=== PATIENT | male | born 1945 | race Caucasian/White ===

== ENCOUNTER 2019-06-02 18:32 | Emergency (ER) | payer MEDICARE, BC ==
[2019-06-02] MEDS ORDERED: HYDROcodone/APAP 5-325MG 1 EACH TAB PO STA (19:16)
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
--- NOTE | 2019-06-02 20:05 | XR ---
EXAMINATION TYPE: XR forearm RT DATE OF EXAM: 06/02/2019 COMPARISON: NONE HISTORY: Forearm pain TECHNIQUE: 2 views FINDINGS: There is no sign of fracture nor dislocation. Joint spaces are normal. IMPRESSION: Negative right forearm exam.
--- NOTE | 2019-06-02 20:06 | XR ---
EXAMINATION TYPE: XR hand complete RT DATE OF EXAM: 06/02/2019 COMPARISON: NONE HISTORY: Pain TECHNIQUE: 3 views FINDINGS: Metacarpals are intact. I see no fracture nor dislocation. There are no erosions. Exam is l imited slightly by flexion positioning. IMPRESSION: Negative right hand exam.
[2019-06-02] MEDS ORDERED: ORPHENADRINE 30 MG/ML 2 ML VIAL IM STA (20:26)
[2019-06-02] MEDS ORDERED: KETOROLAC 60 MG/2 ML VIAL IM STA (20:26)
--- NOTE | 2019-06-02 20:29 | US ---
EXAMINATION TYPE: US venous doppler duplex UE RT DATE OF EXAM: 06/02/2019 COMPARISON: NONE CLINICAL HISTORY: Pain. Pain in right wrist, no kno0wn injury, no h/o dvt, no swelling SIDE PERFORMED: Right Right Arm: Appears negative for DVT IMPRESSION: No evidence of deep venous thrombosis in the right arm.
[2019-06-02] MEDS ORDERED: methylPREDNISolone SOD SUCCI 125 MG/2 ML VIAL IM ONE (20:50)
[2019-06-02] MEDS ORDERED: MORPHINE SULFATE 4 MG/ML SYRINGE IM STA (20:50)
[2019-06-02 21:40] VITALS: BP 146/80; PULSE 56; RESP 18; TEMP 98.5
== END 2019-06-02 21:40 | disposition home or self-care (01) ==
LOC: EC 18:32
DX: G56.01 Carpal tunnel syndrome, right upper limb (principal); K21.9 Gastro-esophageal reflux disease without esophagitis; E78.5 Hyperlipidemia, unspecified; F41.9 Anxiety disorder, unspecified; F32.9 Major depressive disorder, single episode, unspecified; Z87.39 Personal history of other diseases of the musculoskeletal system and connective tissue; Z85.828 Personal history of other malignant neoplasm of skin; Z79.51 Long term (current) use of inhaled steroids; Z79.899 Other long term (current) drug therapy; Z91.048 Other nonmedicinal substance allergy status; Z88.5 Allergy status to narcotic agent
CPT/HCPCS: 93005; 73090; 73130; 93971; 99284; 29125; 96372 ×4; J2270; J2360; J2930; J1885

== ENCOUNTER → 2021-02-17 | Outpatient (CLI) | payer MEDICARE, BC ==
[2021-02-17 08:51] VITALS: BP 123/87; PULSE 62; RESP 18; TEMP 97.6
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
== END ==
LOC: PNWHC3 08:29
PROVIDERS: ATTEND Hospitalist
DX: M47.812 Spondylosis without myelopathy or radiculopathy, cervical region (principal); M50.30 Other cervical disc degeneration, unspecified cervical region; K21.9 Gastro-esophageal reflux disease without esophagitis; E78.5 Hyperlipidemia, unspecified; M19.90 Unspecified osteoarthritis, unspecified site; F41.9 Anxiety disorder, unspecified; F32.9 Major depressive disorder, single episode, unspecified
CPT/HCPCS: 99211

== ENCOUNTER 2021-05-02 11:38 | Day surgery (SDC) | payer MEDICARE ==
[2021-05-01 11:25] VITALS: BMI 25.8
[2021-05-02] MEDS ORDERED: LACTATED RINGERS 1,000 ML IV ONE (12:02)
[2021-05-02] MEDS ORDERED: LIDOCAINE 1% (10MG/ML) FOR IV START INTRADERMA ONE (12:02)
[2021-05-02 12:08] VITALS: TEMP 97.4
[2021-05-02] MEDS ORDERED: ROPIVACAINE 5MG/ML 20ML VIAL ONE (12:17)
[2021-05-02] MEDS ORDERED: LIDOCAINE 1% INJ 10MG/ML (20 ML MDV) ONE (12:17)
[2021-05-02] MEDS ORDERED: MIDAZOLAM 2 MG/2 ML VIAL ONE (12:17)
[2021-05-02] MEDS ORDERED: fentaNYL (PF) 50 MCG/ML 2 ML AMP ONE (12:17)
--- NOTE | 2021-05-02 12:55 | P.PCN ---
Description of Procedure: PREOPERATIVE DIAGNOSIS: Cervicalgia POSTOPERATIVE DIAGNOSIS: Same Surgeon: Morales Lee M.D. PROCEDURE PERFORMED: Cervical Medial Branch Radiofrequency Ablation, at the following levels: C3-4 C4-5 C5-6 right side ANESTHESIA: Lidocaine 1% 5 mL, Monitored anesthesia care with anesthesia team ESTIMATED BLOOD LOSS: Minimal Fluoroscopy was used for the procedure and images were saved in the radiology portion of the chart. PROCEDURE INDICATION: The patient with neck pain secondary to cervical facet arthropathy who had more than 50% relief of pain with previous diagnostic lumbar medial branch block X2. PROCEDURE DESCRIPTION / TECHNIQUE: The patient was seen and identified in the preoperative area. Risks, benefits, complications, including but not limited to risk of infection ,bleeding , allergic reactions to the medications and incomplete pain relief , and alternatives were discussed with the patient, the patient agreed to proceed with the procedure and signed the consent. IV was started. The operative site was marked. Patient was taken to the OR and time out was completed. The patient was placed in the prone position on the procedure table. The lumbar area was prepped and draped in the usual sterile fashion. . Vital signs were closely monitored during the procedure .IV sedation was used during the procedure to decrease patients anxiety. An AP fluoroscopic staff veterinarian film was taken to identify the dens, the C3 C4 C5 C6 vertebral bodies, and the waists of the articular pillars at the aforementioned levels. A pillar (caudal tilt) view was utilized to highlight the waists of the articular pillars at these levels. The skin was prepped with chlorhexidine and draped in the usual sterile fashion. The skin and subcutaneous tissue overlying the above levels were anesthetized using a 25-gauge 1-1/2-inch needle with 1% preservative free lidocaine for a total volume of 1 ml per level. An 20-gauge and 100 mm SMK needle with a 10 mm active tip was advanced, coaxially, in the pillar view until the needle tip was noted to slide into the groove of the articular pillar. A true lateral view was obtained and the needle tips were advanced to cover to the lateral aspect of the articular pillar at right/right C3 C4 C5 C6, for corresponding medial branch ablation. The needles were advanced until bony contact was felt and the tip of the SMK needle was confirmed to be in the groove of the waist of the articular pillars at the aforementioned levels. The needle positions were confirmed with AP and lateral fluoroscopic views. Motor stimulation was then performed at 2 Hz and up to 2V with only paraspinal muscle contraction noted at each level and no upper extremity stimulation. At this point, after negative aspiration, Bupivacaine 0.5% x 0.5 mL was injected at each level prior to radiofrequency ablation. Lesioning was then carried out at 85 degrees Celsius times 90 seconds. Following lesioning the needles were removed. COMPLICATIONS: No acute complications. DISPOSITION / PLANS: The patient was placed in a supine position and transferred to the recovery area in a stable condition for observation and was discharged from the recovery room after meeting discharge criteria. Home discharge instructions given to the patient by the staff. The patient will follow up in clinic in 4 weeks.
[2021-05-02] MEDS ORDERED: IV FLUID CONTINUATION 1,000 ML IV ONE (13:01)
[2021-05-02 13:17] VITALS: BP 133/66; PULSE 57; RESP 16
--- NOTE | 2021-05-02 13:23 | FL ---
EXAMINATION TYPE: FL guided pain mgmt statistic DATE OF EXAM: 05/02/2021 CLINICAL HISTORY: Neck pain. TECHNIQUE: Fluoroscopy. COMPARISON: None. FINDINGS: Fluoroscopic guidance was provided during pain relief procedure performed by Dr. Lee . A total of 39 seconds of fluoroscopic time was utilized during the procedure and two spot images are acquired. Images acquired shows needle localization at multiple levels off the midline in the cervi ingrid spine. IMPRESSION: As Above.
[2021-05-02] MEDS ORDERED: ONDANSETRON 4 MG/2 ML VIAL ONE (13:24)
[2021-05-02] MEDS ORDERED: ONDANSETRON 4 MG/2 ML VIAL IVP ONE (13:26)
== END 2021-05-02 13:54 | disposition home or self-care (01) ==
LOC: ORPAIN 11:38
PROVIDERS: ATTEND Anesthesiology
DX: M54.2 Cervicalgia (principal); Z88.5 Allergy status to narcotic agent; E78.5 Hyperlipidemia, unspecified; J45.909 Unspecified asthma, uncomplicated; K21.9 Gastro-esophageal reflux disease without esophagitis; Z79.891 Long term (current) use of opiate analgesic; Z79.899 Other long term (current) drug therapy
CPT/HCPCS: 64633; 64634 ×2; J2250; J2405; J2001; J3010; J2795

== ENCOUNTER → 2021-05-28 | Outpatient (CLI) | payer MEDICARE ==
[2021-05-28 11:12] VITALS: BP 133/76; PULSE 54; RESP 18; TEMP 98
--- NOTE | 2021-05-28 11:19 | P.PAINPG ---
Subjective Progress Note Date: 05/28/21 Arpit is a very pleasant 75-year-old gentleman who presents today as a Follow- up. To recap [facility] where he was seeing Dr. Elizalde and was getting cervical radiofrequency ablations. Was getting 70 to 80% relief for more than 12 months. We recently repeated right C3-C4 C4-C5 and C5-C6 radiofrequency ablation. he notes that he has significant relief from recent ablation procedure, nearly 90%. Overall most of his frustration stems from the fact that he was unable to get both sides done at the same time and the fact that he is seeing multiple physicians in our clinic. I did explain to him the concept that insurance does not allow us to do 3 levels bilaterally and that we do have several providers at our clinic. Patient understands but would prefer to see the same position over and over so his primary care doctor did refer him to a neurosurgeon who also has an affiliation with the pain clinic. He would like to pursue treatment there and he'll give us a call if they are not helpful to him and we can repeat the RFA at C3-C4 C4-C5 and C5-C6 on the left side. MRIs done at [facility] and are detailed in the orthopedic associated notes detail significant facet joint arthropathy bilaterally in the cervical spine from C3 to C7. There is significant degenerative disc disease with scattered neural foraminal stenosis. There is also mention of a possible arachnoid cyst near the vermis of the cerebellum. Review of Systems: Denies any New chest pain, short of breath, Nausea/vomitting, abdominal pain, bowel or bladder incontinence, or any overt new neurologic symptoms in his upper or lower extremities. Physical Exam Vitals: General: Awake and alert oriented 3 no distress Respiratory exam: No audible wheezing no accessory muscle usage Cardiovascular exam: regular rate, palpable bilateral pulses, no lower extremity edema Abdominal exam: No distention nontender to palpation Cervical spine: Normal alignment, limited range of motion in flexion and extension. There is limited left and right lateral sidebending. Upper extremity strength is normal. Del Valle's is negative. Metallographic Technician strength is normal. Lumbar spine: Slight loss of lordosis, there is atrophy of paraspinal and gluteal muscles. Nontender palpation. Lower extremity strength is normal bilaterally Neuro exam: Normal sensation in bilateral upper extremities, deep tendon reflexes are 1+ bilateral upper extremities. Normal sensation in bilateral lower extremities. Deep tendon reflexes are 2+ in lower extremities Psych exam: Cooperative, appropriate mood Assessment and Plan Assessment: #1 cervical spondylosis without myelopathy #2 cervical degenerative disc disease Plan: - he will call as needed to schedule L C3-4 C4-5 C5-6 RFA I have spent 23 minutes on patient care today. The time was used to review the medical records including relevant urine studies and Prescription history (MAPs), review of the available imaging, evaluation and examination of the patient, coordination of care with the medical staff and if applicable referring physicians, as well as creation of the medical record. PQRS Measure Charge Sheet PQRS Narrative: Smoking Status Never smoker Blood Pressure 123/87 Pain Intensity [Neck] 6 Scale Used Numeric (1 - 10) Hx Alcohol Use (MH) Yes Objective - Vital Signs Vital signs: Intake & Output 05/26/21 05/27/21 05/27/21 18:59 06:59 18:59 Weight 73.936 kg PQRS Measure Charge Sheet PQRS Narrative: Smoking Status Never smoker Pain Intensity [Left Neck] 6 Scale Used Numeric (1 - 10) Hx Alcohol Use (MH) Yes Home Medications: Ambulatory Orders Ezetimibe [Zetia] 10 mg PO HS 09/11/15 Propranolol HCl [Inderal LA] 80 mg PO Q48H 09/11/15 SUMAtriptan SUCCINATE [Imitrex] 100 mg PO DAILY PRN 09/11/15 buPROPion XL [Wellbutrin XL] 150 mg PO HS 09/11/15 buPROPion XL [Wellbutrin XL] 300 mg PO QAM 09/11/15 clonazePAM [KlonoPIN] 0.25 mg PO BID 09/11/15 Albuterol Inhaler (Mhu) [Ventolin Hfa Inhaler (Mhu)] 1 - 2 puff INHALATION Q6HR PRN 08/17/17 Omeprazole [PriLOSEC] 40 mg PO BID 08/17/17 HYDROcodone/APAP 5-325MG [[place] 5-325] 1 tab PO Q6HR PRN 3 Days #12 tab 06/02/19 Lidocaine 5% Patch [Lidoderm] 1 patch TOPICAL DAILY PRN 02/14/21 Multivit-Min36/Iron/Folic Acid [Geritol Complete Tablet] 1 each PO DAILY 02/14/21 lamoTRIgine [LaMICtal] 25 mg PO DAILY 03/13/21 Controlled Substance Measures - Controlled Substance Measures Is patient prescribed a controlled substance at discharge?: No
== END ==
LOC: PNWHC3 10:51
PROVIDERS: ATTEND Anesthesiology
DX: M47.812 Spondylosis without myelopathy or radiculopathy, cervical region (principal); M50.30 Other cervical disc degeneration, unspecified cervical region; Z88.5 Allergy status to narcotic agent; Z91.048 Other nonmedicinal substance allergy status; Z91.09 Other allergy status, other than to drugs and biological substances
CPT/HCPCS: 99211

== ENCOUNTER 2021-07-18 07:02 | Day surgery (SDC) | payer MEDICARE ==
[2021-07-16 15:32] VITALS: BMI 25.8
[~2021-07-18 07:02] MED LIST: LACTATED RINGERS 1,000 ML IV SCH
[2021-07-18 07:19] VITALS: TEMP 96.8
[2021-07-18] MEDS ORDERED: methylPREDNISolone ACETATE 40 MG/ML 1 ML VIAL ONE (07:37)
[2021-07-18] MEDS ORDERED: ROPIVACAINE 5MG/ML 20ML VIAL ONE (07:37)
[2021-07-18] MEDS ORDERED: fentaNYL (PF) 50 MCG/ML 2 ML AMP ONE (07:37)
[2021-07-18] MEDS ORDERED: MIDAZOLAM 2 MG/2 ML VIAL ONE (07:37)
--- NOTE | 2021-07-18 08:03 | P.PCN ---
Date of Procedure: 07/18/21 Procedure(s) Performed: PREOPERATIVE DIAGNOSIS: Cervical spondylosis with Facet Arthropathy without myelopathy. POSTOPERATIVE DIAGNOSIS: Cervical spondylosis with Facet Arthropathy without myelopathy. PROCEDURES: Radiofrequency thermocoagulation Left C3, C4, C5, medial branch with Fluroscopy Guidence(fluoroscopy was available in etiology department ) (to denervate the facet joint at Left C3- 4 , C4- 5 ) ANESTHESIA: monitered anesthesia care,as per anesthesia Department. EBL: Minimal PROCEDURE INDICATION: The patient with neck pain secondary to cervical arthropathy who had more than 50% relief of her pain with previous diagnostic cervical medial branch block. PROCEDURE DESCRIPTION / TECHNIQUE: The patient was seen and identified in the preoperative area. Risks, benefits, complications, and alternatives were discussed with the patient, the patient agreed to proceed with the procedure and signed the consent. IV was started. Vital signs remained stable throughout the procedure. Patient was taken to the OR and time out was completed. The patient was placed in the prone position on the procedure table. A pillow was placed under the patients chest to increase the cervical interlaminar space. The cervical area was prepped and draped in the usual sterile fashion. Critical pause was taken. Vital signs were closely monitored during the procedure. Conscious sedation was used during the procedure to decrease patients anxiety. Using cross-table lateral fluoroscopy, the centroid of the trapezoid of Left C3, C4, C5, were identified, marked, and localized with 1% lidocaine. Subsequently, a 20 -xe radiofrequency cannula with a 10-mm active tip was advanced guided by fluoroscopy to the centroid of the trapezoid of Left C3, C4, C5, . Needle tip position was confirmed at the centroid of the trapezoids of Left C3, C4, C5 with anteroposterior fluoroscopy. Each site then underwent sensory testing at 50 Hz and 0 to 1 volt and motor testing at 2 Hz and 0 to 3 volt with local stimulation, but no radicular symptoms down the arm. Thereafter each sites underwent radiofrequency thermocoagulation at 80 degrees celsius for 90 seconds after injecting 0.5 ml of PF Ropivacaine 0.5 %. After thermocoagulation, 1 ml of the block solution containing Depo-Medrol 40 mg and 3 mL of preservative-free normal saline was injected at the Left C3, C4, C5, levels after negative aspiration of CSF and blood and with no paresthesias. Cannulas were retracted while injecting lidocaine 1% until the needle is out. Skin was cleansed and bandages were applied. COMPLICATIONS: No acute complications. DISPOSITION / PLANS: The patient was placed in a supine position and transferred to the recovery area in a stable condition for observation and was discharged from the recovery room after meeting discharge criteria. Home discharge instructions given to the patient by the staff. The patient was reexamined prior to discharge. The patient will schedule a follow up in the clinic in 2-4 weeks.
[2021-07-18] MEDS ORDERED: IV FLUID CONTINUATION 1,000 ML IV ONE (08:07)
[2021-07-18 08:16] VITALS: RESP 16
[2021-07-18 08:25] VITALS: BP 128/89; PULSE 50
--- NOTE | 2021-07-18 08:31 | FL ---
Fluoroscopy History: Cerv Rad Freq 7sec fluoro time+
== END 2021-07-18 08:40 | disposition home or self-care (01) ==
LOC: ORPAIN 07:02
PROVIDERS: ATTEND Specialist
DX: M47.812 Spondylosis without myelopathy or radiculopathy, cervical region (principal); G43.909 Migraine, unspecified, not intractable, without status migrainosus; Z79.891 Long term (current) use of opiate analgesic; Z79.899 Other long term (current) drug therapy; Z88.5 Allergy status to narcotic agent; Z91.09 Other allergy status, other than to drugs and biological substances
CPT/HCPCS: 64633; 64634; J2250; J1030; J3010; J2795

== ENCOUNTER → 2021-08-11 | Outpatient (CLI) | payer MEDICARE ==
[2021-08-11 10:20] VITALS: BP 134/83; PULSE 80; RESP 18
--- NOTE | 2021-08-11 10:34 | P.PN ---
Subjective Progress Note Date: 08/11/21 This is a follow-up visit for this 76 years old male with a chronic history of severe neck pain,he is diagnosed with cervical spondylosis with cervical facet arthropathy, recently we have done RFA of the medial branch cervical area, she reported that his pain improved significantly, his activity of daily livings improved significantly after the RFA, he denies any motor or sensory deficit Objective - Vital Signs Vital signs: Vital Signs Temp Pulse 80 08/11/21 10:08 Resp 18 08/11/21 10:08 BP 134/83 08/11/21 10:08 Pulse Ox 95 08/11/21 10:08 - Exam Physical Examinations : -Constitutiona : Cooperative , not in acute distress . -HEENT : nech : supple , no Lymphadenopathy , normal thyroid size . : eyes : no ptosis , no icterus, no photophobia . - neurologic : Cranial nerve II to XII intact , no focal neurological deffecit . -psychatric : alert , oriented X 3 , appropriate affect , intact judgment and insight . -Lymphatic : no Lymphadenopathy . - musculoskeltal : normal Motor strength in the upper extremity Lumber spine moter stegnth lower extremities ,thigh and legs 5/5 Right side , 5/5 Left side Assessment and Plan Plan: Assessment and plan=1-cervical spondylosis with cervical facet arthropathy Pain improved significantly after RFA of the medial branch cervical area patient will follow up when necessary Time with Patient: Less than 30
== END ==
LOC: PNWHC3 09:39
PROVIDERS: ATTEND Specialist
DX: M47.812 Spondylosis without myelopathy or radiculopathy, cervical region (principal); Z98.890 Other specified postprocedural states; Z91.048 Other nonmedicinal substance allergy status; Z88.5 Allergy status to narcotic agent; Z91.09 Other allergy status, other than to drugs and biological substances
CPT/HCPCS: 99211

== ENCOUNTER → 2022-01-08 | Outpatient (CLI) | payer MEDICARE ==
--- NOTE | 2022-01-08 09:08 | P.PN ---
Subjective Progress Note Date: 01/08/22 Principal diagnosis: A 76 yr old male with a history of severe and chronic neck pain secondary to cervical degenerative disc diseases and spondylosis with facet arthropathy presents today for evaluation. Patient states his neck pain has been on and off for the last 20 years and is currently 7 out of 10 in intensity, achy, sharp and pretty constant over the last 2 weeks. Pain escalates as high as 10 out of 10 in intensity with lifting, carrying and pulling with the upper extremities. Pain is alleviated with medications, lidocaine patches, injections, ice, heat, physical therapy in , chiropractic treatments which were discontinued by his physician, home exercise regimen daily, massage while at physical therapy, use of a recliner and rest. Interventional pain procedures completed include Stephanie, Morgan RFA C3-C4, C4-C5, C5- C6. Patient is currently on Hailey, Tylenol arthritis. Patient denies any side effects of the medication(s), denies excessive drowsiness or sleepiness, denies suicidal ideation and reports that the current pain medication is helping to control the pain and improve activities of daily living. Patient denies any motor or sensory deficits. Patient denies any fever or night sweats, denies any change in the bowel movements or urination. Physical Examination: -Constitutional: Cooperative. Not in acute distress . -HEENT: Neck is supple. No lymphadenopathy. No thyromegaly. Normal thyroid size. Eyes: No ptosis , no icterus, no photophobia. ENT: No auditory deficits. Normal oropharynx. No Thrush. - Respiratory: Chest clear to auscultations bilaterally. No wheezing. No rhonchi. - Cardiovascular: Regular rate and rhythm. S1 / S2 , no S3 , no S4. - Gastrointestinal: Abdomen soft no tenderness. Bowel sounds positive in all four quadrants. No organomegaly. - Genitourinary: Deferred. - Neurologic: Cranial nerve II to XII intact. No focal neurological deficits. - Psychatric: Alert & oriented x 3. Matching mood & appropriate affect. Judgment and insight intact. - Lymphatic: No Lymphadenopathy. - Musculoskeletal: Cervical spine: Muscle bulk/ tone/ strength in the bilateral upper extremities normal. Vertebral body tenderness over C4, C5, C6 Spurling test positive Distraction test positive Facet loading test cervical area positive. Lumbar spine: Motor bulk/ tone/ strength lower extremities , thigh and legs : 5/5 Deep tendon reflexes : Normal Knee Jerk. Normal Ankle Jerk . Vertebral body tenderness to palpation over Lumbar Facet Loading Test positive Straight Leg Raise: positive at 30 degrees right side/ left side Gaenslen's Test positive Sacral spine : Severe tenderness over the Sacroiliac joint: right side / left side Range of motion: Flexion of the lumbar spine <60 degrees Range of motion: Extension of the lumbar spine <20 degrees Gaenslen's Test positive Jossy test: positive right side / left side Assessment and plan: Chronic neck pain secondary to cervical degenerative disc disease , spondylosis with facet arthropathy without myelopathy Recommendation of ALEXI C4-C5. May need a series of injections, up to 3 with a six-month period, to obtain optimal pain relief. Risks, benefits of procedure discussed patient verbalized understanding. Denies anticoagulants use. Denies medical history diabetes mellitus. All patient questions answered MAPS reviewed and it was appropriate. I have spent 31 minutes on patient care today. Dr Angela was available by phone for the evaluation of this patient. The time was used to review the medical records including relevant urine studies and Prescription history (MAPs), review of the available imaging, evaluation and examination of the patient, coordination of care with the medical staff and if applicable referring physicians, as well as creation of the medical record PQRS Measure Charge Sheet PQRS Narrative: Smoking Status Never smoker Hx Alcohol Use (MH) Yes Home Medications: Ambulatory Orders Ezetimibe [Zetia] 10 mg PO HS 09/11/15 Propranolol HCl [Inderal LA] 80 mg PO Q48H 09/11/15 SUMAtriptan SUCCINATE [Imitrex] 100 mg PO DAILY PRN 09/11/15 buPROPion XL [Wellbutrin XL] 150 mg PO HS 09/11/15 buPROPion XL [Wellbutrin XL] 300 mg PO QAM 09/11/15 clonazePAM [KlonoPIN] 0.25 mg PO BID 09/11/15 Albuterol Inhaler (Mhu) [Ventolin Hfa Inhaler (Mhu)] 1 - 2 puff INHALATION Q6HR PRN 08/17/17 Omeprazole [PriLOSEC] 40 mg PO BID 08/17/17 HYDROcodone/APAP 5-325MG [[place] 5-325] 1 tab PO Q6HR PRN 3 Days #12 tab 06/02/19 Lidocaine 5% Patch [Lidoderm] 1 patch TOPICAL DAILY PRN 02/14/21 Multivit-Min36/Iron/Folic Acid [Geritol Complete Tablet] 1 each PO DAILY 02/14/21 lamoTRIgine [LaMICtal] 50 mg PO DAILY 03/13/21
[2022-01-08 10:13] VITALS: BP 121/81; PULSE 60; RESP 18; TEMP 98.2
== END ==
LOC: PNWHC3 07:52
PROVIDERS: ATTEND Specialist
DX: G89.29 Other chronic pain (principal); M50.30 Other cervical disc degeneration, unspecified cervical region; M47.812 Spondylosis without myelopathy or radiculopathy, cervical region; Z88.5 Allergy status to narcotic agent; Z91.048 Other nonmedicinal substance allergy status; Z91.09 Other allergy status, other than to drugs and biological substances
CPT/HCPCS: 99211

== ENCOUNTER → 2022-03-16 | Outpatient (CLI) | payer MEDICARE ==
[2022-03-16 11:16] VITALS: BP 116/76; PULSE 58; RESP 16
--- NOTE | 2022-03-16 11:21 | P.PN ---
Subjective Progress Note Date: 03/16/22 This is a 76-year-old gentleman with history of chronic neck pain with radi ation to the left shoulder. His pain is mostly on the left side of her worse neck and starts from the suboccipital area down to the left shoulder. The patient had cervical medial branch RFA about 8 months ago which gave him significant pain relief. Recently he has cervical epidural steroid injection and trigger point injection which did not give him as good results as of the ablation. Patient denies new-onset weakness, bowel/bladder incontinence, or any other signs or symptoms of cauda equina syndrome. There are no signs of acute intoxication, and no indications of medication diversion or overuse. In addition to above, 13-point review of systems is also negative for chest pain, shortness of breath, changes in vision, changes in hearing, new onset weakness, abdominal pain, diarrhea, extreme fatigue, malaise, fever, skin changes, homicidal or suicidal ideation, or bowel or bladder incontinence. Vital Signs: Reviewed in EMR Gen: AAOx3, NAD HEENT: PERRLA,hearing grossly normal Pulm: resp unlabored Neck: supple, trachea midline Neuro exam of the lower extremities: Straight leg raising test: Erasmo's test: Range of motion of the lumbar spine: Facet loading test: Tenderness in the paravertebral musculature: Neuro: CN II-XII grossly intact, Imaging: Reviewed in EMR/chart Assessment: Cervical spondylosis without myelopathy Myofascial pain Plan: 1. Explanation: When patients on opioids, opioid and psychological risk scores were reviewed. Diagnoses, prognoses, and multiple treatment options including but not limited to physical therapy, interventional therapies, adjuvant medical therapies, narcotic medication therapies, and surgery were discussed with the patient and all questions were answered to the patient's satisfaction. 2. Opioid agreement:When patients are prescribed opoids through our clinic, opioid agreement is signed with the patient and the patient is warned not to use opioids while driving or before driving and not to combine opioids with benzodiazepines or alcohol. 3. Counseling: When patient is smoking or obese, the patient was counseled extensively on SMOKING CESSATION, BODY MASS INDEX, EXERCISE. Specifically, the patient was instructed regarding the importance of smoking cessation, obesity, and exercise in the context of both chronic pain and overall health. 4. Procedures: The patient had very good results from the cervical medial branch RFA 8 months ago and going to schedule him for another cervical medial branch RFA for levels C4-5, and C5 6 also for trigger point injection in the left trapezius muscle and left cervical paravertebral musculature 5. Consultations: None 6. Investigations: None 7. Medications: None prescribed today 8. Disposition: Proceed with the above-mentioned procedure as soon as possible 9. Maps were reviewed and were appropriate. Objective - Vital Signs Vital signs: Vital Signs Temp Pulse 58 L 03/16/22 10:47 Resp 16 03/16/22 10:47 BP 116/76 03/16/22 10:47 Pulse Ox 96 03/16/22 10:47 FiO2
== END ==
LOC: PNWHC3 10:40
PROVIDERS: ATTEND Anesthesiology
DX: M47.812 Spondylosis without myelopathy or radiculopathy, cervical region (principal); M79.18 Myalgia, other site; Z88.5 Allergy status to narcotic agent; Z91.048 Other nonmedicinal substance allergy status; Z91.09 Other allergy status, other than to drugs and biological substances
CPT/HCPCS: 99211

== ENCOUNTER 2022-04-03 06:20 | Day surgery (SDC) | payer MEDICARE ==
[2022-04-03 06:34] VITALS: TEMP 97.2
[2022-04-03] MEDS ORDERED: LACTATED RINGERS 1,000 ML IV ONE (06:45)
[2022-04-03] MEDS ORDERED: fentaNYL (PF) 50 MCG/ML 2 ML AMP ONE (07:00)
[2022-04-03] MEDS ORDERED: ROPIVACAINE 5MG/ML 20ML VIAL ONE (07:00)
[2022-04-03] MEDS ORDERED: methylPREDNISolone ACETATE 40 MG/ML 1 ML VIAL ONE (07:00)
[2022-04-03] MEDS ORDERED: MIDAZOLAM 2 MG/2 ML VIAL ONE (07:00)
--- NOTE | 2022-04-03 07:32 | P.PCN ---
Date of Procedure: 04/03/22 Procedure(s) Performed: PREOPERATIVE DIAGNOSIS: Cervical spondylosis with Facet Arthropathy without myelopathy. POSTOPERATIVE DIAGNOSIS: Cervical spondylosis with Facet Arthropathy without myelopathy. PROCEDURES: Radiofrequency thermocoagulation Left C4, C5, C6 medial branch with Fluroscopy [place](fluoroscopy was available in etiology department ) (to denervate the facet joint at Left C4- 5, C5-6 ) ANESTHESIA: monitered anesthesia care,as per anesthesia Department. EBL: Minimal PROCEDURE INDICATION: The patient with neck pain secondary to cervical arthropathy who had more than 50% relief of her pain with previous diagnostic cervical medial branch block. PROCEDURE DESCRIPTION / TECHNIQUE: The patient was seen and identified in the preoperative area. Risks, benefits, complications, and alternatives were discussed with the patient, the patient agreed to proceed with the procedure and signed the consent. IV was started. Vital signs remained stable throughout the procedure. Patient was taken to the OR and time out was completed. The patient was placed in the lateral position on the procedure table ( left side up ). The cervical area was prepped and draped in the usual sterile fashion. Critical pause was taken. Vital signs were closely monitored during the procedure. Conscious sedation was used during the procedure to decrease patients anxiety. Using cross-table lateral fluoroscopy, the centroid of the trapezoid of Left C4, C5, C6 were identified, marked, and localized with 1% lidocaine. Subsequently, a 20 ssovj278-on radiofrequency cannula with a 10-mm active tip was advanced guided by fluoroscopy to the centroid of the trapezoid of Left C4, C5, C6 . Needle tip position was confirmed at the centroid of the trapezoids of Left C4, C5, C6 with anteroposterior fluoroscopy. Each site then underwent sensory testing at 50 Hz and 0 to 1 volt and motor testing at 2 Hz and 0 to 3 volt with local stimulation, but no radicular symptoms down the arm. Thereafter each sites underwent radiofrequency thermocoagulation at 80 degrees celsius for 90 seconds after injecting 0.5 ml of PF Ropivacaine 0.5 %. After thermocoagulation, 1 ml of the block solution containing Depo-Medrol 40 mg and 3 mL of preservative-free normal saline was injected at the Left C4, C5, C6 levels after negative aspiration of CSF and blood and with no paresthesias. Cannulas were retracted while injecting lidocaine 1% until the needle is out. Skin was cleansed and bandages were applied. COMPLICATIONS: No acute complications. DISPOSITION / PLANS: The patient was placed in a supine position and transferred to the recovery area in a stable condition for observation and was discharged from the recovery room after meeting discharge criteria. Home discharge instructions given to the patient by the staff. The patient was reexamined prior to discharge. The patient will schedule a follow up in the clinic in 2-4 weeks.
[2022-04-03] MEDS ORDERED: IV FLUID CONTINUATION 750 ML IV ONE (07:35)
[2022-04-03 07:49] VITALS: BP 112/73; PULSE 59; RESP 20
--- NOTE | 2022-04-03 08:17 | FL ---
Fluoroscopy INDICATION: Pain FINDINGS: Fluoroscopy time: 12 seconds. Images obtained: 3. IMPRESSIONS: 1. Documentation of fluoroscopy.
== END 2022-04-03 08:05 | disposition home or self-care (01) ==
LOC: ORPAIN 06:20
PROVIDERS: ATTEND Specialist
DX: M47.812 Spondylosis without myelopathy or radiculopathy, cervical region (principal); E78.5 Hyperlipidemia, unspecified; F41.9 Anxiety disorder, unspecified; F32.A Depression, unspecified; Z87.820 Personal history of traumatic brain injury; Z88.5 Allergy status to narcotic agent; Z88.8 Allergy status to other drugs, medicaments and biological substances; K21.9 Gastro-esophageal reflux disease without esophagitis; Z79.899 Other long term (current) drug therapy
CPT/HCPCS: 64633; 64634; J2250; J1030; J3010; J2795

== ENCOUNTER → 2022-04-23 | Outpatient (CLI) | payer MEDICARE ==
[2022-04-23 12:17] VITALS: BP 121/76; PULSE 56; RESP 18; TEMP 98.2
--- NOTE | 2022-04-23 14:53 | P.PAINPG ---
PQRS Measure Charge Sheet Comment: A 76 yr old male with a history of severe and chronic neck pain secondary to degenerative disc diseases and spondylosis with facet arthropathy presents today for L RFA C4-C5, C5-C6. Experienced 85% pain relief s/p procedure. Pain level is currently at 5/10 in intensity, localized in the R side of the cervical spine with radiation to neck and to the R shoulder. It is intermittent, sharp/shooting in character. Pain is provoked by repositioning, lifting. Pain is alleviated with PT 1 yr ago x 4 weeks, PT integrated w massage, ice, medications ([place]), Voltaren gel, rest. Interventional pain procedures completed include L RFA C4-C5, C5-C6 Patient is currently on [place] Patient denies any side effects of the medication(s), denies excessive drowsiness or sleepiness, denies suicidal ideation and reports that the current pain medication is helping to control the pain and improve activities of daily living. Patient denies any motor or sensory deficits. Patient denies any fever or night sweats, denies any change in the bowel movements or urination. Physical Examination: -Constitutional: Cooperative. Not in acute distress . - Neurologic: Cranial nerve II to XII intact. No focal neurological deficits. - Psychatric: Alert & oriented x 3. Matching mood & appropriate affect. Judgment and insight intact. - Musculoskeletal: Cervical spine: Muscle bulk/ tone/ strength in the bilateral upper extremities normal Vertebral body tenderness to palpation over R C4-C5, C5-C6 with accompanying paraspinal TTP & spasms Spurling test positive Distraction test positive Facet loading test positive Thoracic spine Muscle bulk / tone/ strength in the bilateral paraspinal muscles normal Vertebral body tender to palpation over Facet loading test positive Lumbar spine: Motor bulk/ tone/ strength lower extremities , thigh and legs : 5/5 Deep tendon reflexes : Normal Knee Jerk. Normal Ankle Jerk . Vertebral body tenderness to palpation over Lumbar Facet Loading Test positive Straight Leg Raise: positive at 30 degrees right side/ left side Gaenslen's Test positive Sacral spine : Severe tenderness over the Sacroiliac joint: right side / left side Range of motion: Flexion of the lumbar spine <60 degrees Range of motion: Extension of the lumbar spine <20 degrees Gaenslen's Test positive Erasmo's Test positive Jossy test: positive right side / left side Thigh Thrust Test Sacral Thrust Test Assessment and plan: Chronic neck pain secondary to degenerative disc disease , spondylosis with facet arthropathy without myelopathy Recommendation of R RFA C4-C5, C5-C6. Pt exhibited sufficient and optimal pain relief with the L RFA completed recently. Risks, benefits of procedure discussed and pt verbalized understanding. Denies anticoagulant use or medical history of diabetes. All patient questions answered MAPS reviewed and it was appropriate. I have spent less than 30 minutes on patient care today. Dr Angela was available by phone for the evaluation of this patient. The time was used to review the medical records including relevant urine studies and Prescription history (MAPs), review of the available imaging, evaluation and examination of the patient, coordination of care with the medical staff and if applicable referring physicians, as well as creation of the medical record PQRS Narrative: Smoking Status Never smoker Hx Alcohol Use (MH) Yes Home Medications: Ambulatory Orders Ezetimibe [Zetia] 10 mg PO HS 09/11/15 Propranolol HCl [Inderal LA] 80 mg PO Q48H 09/11/15 SUMAtriptan succinate [Imitrex] 100 mg PO DAILY PRN 09/11/15 buPROPion XL [Wellbutrin XL] 150 mg PO HS 09/11/15 buPROPion XL [Wellbutrin XL] 300 mg PO QAM 09/11/15 clonazePAM [KlonoPIN] 0.25 mg PO BID 09/11/15 Albuterol Inhaler [Ventolin Hfa Inhaler] 1 - 2 puff INHALATION Q6HR PRN 08/17/17 Omeprazole [PriLOSEC] 40 mg PO BID 08/17/17 HYDROcodone/APAP 5-325MG [[place] 5-325] 1 tab PO Q6HR PRN 3 Days #12 tab 06/02/19 Lidocaine 5% Patch [Lidoderm] 1 patch TOPICAL DAILY PRN 02/14/21 Multivit-Min36/Iron/Folic Acid [Geritol Complete Tablet] 1 each PO DAILY 02/14/21 lamoTRIgine [LaMICtal] 50 mg PO DAILY 03/13/21 Acetaminophen [Tylenol Arthritis] 650 mg PO DIRECTED PRN 02/02/22 Dm/PE/Acetaminophen/Doxylamine [[place]ett[place] Plus Day-Night Cp] 1 each PO DIRECTED PRN 02/02/22 Controlled Substance Measures - Controlled Substance Measures Is patient prescribed a controlled substance at discharge?: No
== END ==
LOC: PNWHC3 11:06
PROVIDERS: ATTEND Specialist
DX: M51.36 Other intervertebral disc degeneration, lumbar region (principal); M47.816 Spondylosis without myelopathy or radiculopathy, lumbar region; G89.29 Other chronic pain; Z88.5 Allergy status to narcotic agent; Z91.048 Other nonmedicinal substance allergy status; Z91.09 Other allergy status, other than to drugs and biological substances
CPT/HCPCS: 99211

== ENCOUNTER 2022-06-05 06:54 | Day surgery (SDC) | payer MEDICARE ==
[2022-06-05] MEDS ORDERED: LIDOCAINE 1% (10MG/ML) FOR IV START INTRADERMA PRN (07:21)
[2022-06-05] MEDS ORDERED: LACTATED RINGERS 1,000 ML IV SCH (07:21)
[2022-06-05 07:24] VITALS: TEMP 98
[2022-06-05] MEDS ORDERED: fentaNYL (PF) 50 MCG/ML 2 ML AMP ONE (08:09)
[2022-06-05] MEDS ORDERED: MIDAZOLAM 2 MG/2 ML VIAL ONE (08:09)
[2022-06-05] MEDS ORDERED: ROPIVACAINE 5MG/ML 20ML VIAL ONE (08:09)
[2022-06-05] MEDS ORDERED: methylPREDNISolone ACETATE 40 MG/ML 1 ML VIAL ONE (08:09)
--- NOTE | 2022-06-05 08:35 | P.PCN ---
Date of Procedure: 06/05/22 Procedure(s) Performed: PREOPERATIVE DIAGNOSIS: Cervical spondylosis with Facet Arthropathy without myelopathy. POSTOPERATIVE DIAGNOSIS: Cervical spondylosis with Facet Arthropathy without myelopathy. PROCEDURES: Radiofrequency thermocoagulation Right C4, C5, C6 medial branch with Fluroscopy [place](fluoroscopy was available in etiology department ) (to denervate the facet joint at Right C4- 5, C5-6 ) ANESTHESIA: monitered anesthesia care,as per anesthesia Department. EBL: Minimal PROCEDURE INDICATION: The patient with neck pain secondary to cervical arthropathy who had more than 50% relief of her pain with previous diagnostic cervical medial branch block. PROCEDURE DESCRIPTION / TECHNIQUE: The patient was seen and identified in the preoperative area. Risks, benefits, complications, and alternatives were discussed with the patient, the patient agreed to proceed with the procedure and signed the consent. IV was started. Vital signs remained stable throughout the procedure. Patient was taken to the OR and time out was completed. The patient was placed in the lateral position on the procedure table ( Right side up ). The cervical area was prepped and draped in the usual sterile fashion. Critical pause was taken. Vital signs were closely monitored during the procedure. Conscious sedation was used during the procedure to decrease patients anxiety. Using cross-table lateral fluoroscopy, the centroid of the trapezoid of Right C4, C5, C6 were identified, marked, and localized with 1% lidocaine. Subsequently, a 20 [id number] radiofrequency cannula with a 10-mm active tip was advanced guided by fluoroscopy to the centroid of the trapezoid of Right C4, C5, C6 . Needle tip position was confirmed at the centroid of the trapezoids of Right C4, C5, C6 with anteroposterior fluoroscopy. Each site then underwent sensory testing at 50 Hz and 0 to 1 volt and motor testing at 2 Hz and 0 to 3 volt with local stimulation, but no radicular symptoms down the arm. Thereafter each sites underwent radiofrequency thermocoagulation at 80 degrees celsius for 90 seconds after injecting 0.5 ml of PF Ropivacaine 0.5 %. After thermocoagulation, 1 ml of the block solution containing Depo-Medrol 40 mg and 3 mL of preservative-free normal saline was injected at the Right C4, C5, C6 levels after negative aspiration of CSF and blood and with no paresthesias. Cannulas were retracted while injecting lidocaine 1% until the needle is out. Skin was cleansed and bandages were applied. COMPLICATIONS: No acute complications. DISPOSITION / PLANS: The patient was placed in a supine position and transferred to the recovery area in a stable condition for observation and was discharged from the recovery room after meeting discharge criteria. Home discharge instructions given to the patient by the staff. The patient was reexamined prior to discharge. The patient will schedule a follow up in the clinic in 2-4 weeks.
[2022-06-05] MEDS ORDERED: IV FLUID CONTINUATION 1,000 ML IV ONE (08:39)
--- NOTE | 2022-06-05 08:54 | FL ---
Fluoroscopy History: RADIO FREQ RT CERVICAL 6 sec fl time used rf cervical
[2022-06-05 09:01] VITALS: BP 132/67; PULSE 52; RESP 16
== END 2022-06-05 09:11 | disposition home or self-care (01) ==
LOC: ORPAIN 06:54
PROVIDERS: ATTEND Specialist
DX: M47.812 Spondylosis without myelopathy or radiculopathy, cervical region (principal); M62.838 Other muscle spasm; Z88.5 Allergy status to narcotic agent; Z91.09 Other allergy status, other than to drugs and biological substances; E78.5 Hyperlipidemia, unspecified; J45.909 Unspecified asthma, uncomplicated; G43.909 Migraine, unspecified, not intractable, without status migrainosus; K21.9 Gastro-esophageal reflux disease without esophagitis; Z79.891 Long term (current) use of opiate analgesic; Z79.899 Other long term (current) drug therapy; Z98.890 Other specified postprocedural states
CPT/HCPCS: 64633; 64634; J2250; J1030; J3010; J2795

== ENCOUNTER 2022-07-21 06:48 | Day surgery (SDC) | payer MEDICARE ==
[~2022-07-21 06:48] MED LIST changes: +LIDOCAINE 1% (10MG/ML) FOR IV START INTRADERMA PRN
[2022-07-21 07:14] VITALS: RESP 16; TEMP 97.3
[2022-07-21] MEDS ORDERED: ROPIVACAINE 5 MG/ML 20 ML AMPULE ONE (07:51)
[2022-07-21] MEDS ORDERED: methylPREDNISolone ACETATE 40 MG/ML 1 ML VIAL ONE (07:51)
--- NOTE | 2022-07-21 08:10 | P.PCN ---
Date of Procedure: 07/21/22 Procedure(s) Performed: PREOPERATIVE DIAGNOSIS: 1-Cervical Spondylosis with Facet Arthropathy.without myelopathy. 2-myofascial pain syndrome cervical and thoracic area POSTOPERATIVE DIAGNOSIS: Same as preoperative diagnosis. PROCEDURES: Trigger pontine injections cervical and thoracic paraspinal muscles from C2 to T1 (5 on the right side cervical and thoracic paraspinal muscles, And 5 trigger point on the left side cervical and thoracic paraspinal muscles ) ANESTHESIA:none EBL: Minimal PROCEDURE INDICATION: The patient with neck pain secondary to cervical and thoracic myofascial pain syndrome PROCEDURE DESCRIPTION / TECHNIQUE: The patient was seen and identified in the preoperative area. Risks, benefits, complications, and alternatives were discussed with the patient, the patient agreed to proceed with the procedure and signed the consent. Vital signs remained stable throughout the procedure. Total of 5 trigger point identified in the cervical and thoracic paraspinal muscles on the right side and 5 trigger point identified on the left side cervical and thoracic paraspinal muscles each one of them injected with mixture of ropivacaine 0.5% and Depo-Medrol 40 mg 2 mL injected at each trigger point after negative aspiration using 25-gauge needle injection done after negative aspiration under was no paresthesia during the injection, tolerated the procedure well without any complications COMPLICATIONS: No acute complications. DISPOSITION / PLANS: The patient was placed in a supine position and transferred to the recovery area in a stable condition for observation and was discharged from the recovery room after meeting discharge criteria. Home discharge instructions given to the patient by the staff. The patient was reexamined prior to discharge. The patient will schedule a follow up in the clinic in 2-4 weeks.
[2022-07-21 08:31] VITALS: BP 153/90; PULSE 53
== END 2022-07-21 08:30 | disposition home or self-care (01) ==
LOC: ORPAIN 06:48
PROVIDERS: ATTEND Specialist
DX: M79.18 Myalgia, other site (principal); M47.812 Spondylosis without myelopathy or radiculopathy, cervical region
CPT/HCPCS: 20553; J1030; J2795

== ENCOUNTER → 2022-08-03 | Outpatient (CLI) | payer MEDICARE ==
[2022-08-03 11:28] VITALS: BP 117/77; PULSE 71; RESP 18; TEMP 98.7
--- NOTE | 2022-08-03 14:47 | P.PAINPG ---
PQRS Measure Charge Sheet Comment: A 77 yr old male with a history of severe and chronic low back pain secondary to lumbar degenerative disc diseases and lumbar spondylosis with facet arthropathy without myelopathy presents today for evaluation s/p BL TPIs of C2- T1. Pt states he experienced 90% pain relief x 2 wks s/p procedure. Pain level is currently at 2/10 in intensity, constant, localized in the mid to lower cervical spine, sharp in character w shooting towards BL shoulders. Pain is provoked by heavy activity. Pain is alleviated with medications, topicals, injections, ice, heat, repositioning and rest. Interventional pain procedures completed include ESIs, BL TPIs C2-T1 Patient is currently on [place], Tylenol OTC Patient denies any side effects of the medication(s), denies excessive drowsiness or sleepiness, denies suicidal ideation and reports that the current pain medication is helping to control the pain and improve activities of daily living. Patient denies any motor or sensory deficits. Patient denies any fever or night sweats, denies any change in the bowel movements or urination. Physical Examination: -Constitutional: Cooperative. Not in acute distress . - Neurologic: Cranial nerve II to XII intact. No focal neurological deficits. - Psychatric: Alert & oriented x 3. Matching mood & appropriate affect. Judgm ent and insight intact. - Musculoskeletal: Cervical spine: Muscle bulk/ tone/ strength in the bilateral upper extremities normal Vertebral body tenderness to palpation over Spurling test positive Distraction test positive Facet loading test positive Thoracic spine Muscle bulk / tone/ strength in the bilateral paraspinal muscles normal Vertebral body tender to palpation over Facet loading test positive Lumbar spine: Motor bulk/ tone/ strength lower extremities , thigh and legs : 5/5 Deep tendon reflexes : Normal Knee Jerk. Normal Ankle Jerk . Vertebral body tenderness to palpation over Lumbar Facet Loading Test positive Straight Leg Raise: positive at 30 degrees right side/ left side Gaenslen's Test positive Sacral spine : Severe tenderness over the Sacroiliac joint: right side / left side Range of motion: Flexion of the lumbar spine <60 degrees Range of motion: Extension of the lumbar spine <20 degrees Gaenslen's Test positive Erasmo's Test positive Jossy test: positive right side / left side Thigh Thrust Test Sacral Thrust Test Assessment and plan: Chronic low back pain secondary to lumbar degenerative disc disease , lumbar spondylosis with facet arthropathy without myelopathy Pt exhibited substantial and sufficient pain relief w TPI procedure. He will manage residual pain w home pain mgmt modifying remedies and may return to this clinic on an as needed basis. All patient questions answered I have spent less than 30 minutes on patient care today. Dr Angela was available by phone for the evaluation of this patient. The time was used to review the medical records including relevant urine studies and Prescription history (MAPs), review of the available imaging, evaluation and examination of the patient, coordination of care with the medical staff and if applicable referring physicians, as well as creation of the medical record PQRS Narrative: Smoking Status Never smoker Hx Alcohol Use (MH) Yes Home Medications: Ambulatory Orders Ezetimibe [Zetia] 10 mg PO HS 09/11/15 Propranolol HCl [Inderal LA] 80 mg PO Q48H 09/11/15 SUMAtriptan succinate [Imitrex] 100 mg PO DAILY PRN 09/11/15 buPROPion XL [Wellbutrin XL] 150 mg PO HS 09/11/15 buPROPion XL [Wellbutrin XL] 300 mg PO QAM 09/11/15 clonazePAM [KlonoPIN] 0.25 mg PO TID 09/11/15 Omeprazole [PriLOSEC] 40 mg PO BID 08/17/17 HYDROcodone/APAP 5-325MG [[place] 5-325] 1 tab PO Q6HR PRN 3 Days #12 tab 06/02/19 Lidocaine 5% Patch [Lidoderm] 1 patch TOPICAL DAILY PRN 02/14/21 Multivit-Min36/Iron/Folic Acid [Geritol Complete Tablet] 1 each PO DAILY 02/14/21 lamoTRIgine [LaMICtal] 50 mg PO BID 03/13/21 Acetaminophen [Tylenol Arthritis] 650 mg PO DIRECTED PRN 02/02/22 Dm/PE/Acetaminophen/Doxylamine [[place]ettie-[place] Plus Day-Night Cp] 1 each PO DIRECTED PRN 02/02/22 tiZANidine [Zanaflex] 2 mg PO Q8HR PRN 30 Days #60 tablet 06/05/22 Controlled Substance Measures - Controlled Substance Measures Is patient prescribed a controlled substance at discharge?: No
== END ==
LOC: PNWHC3 11:01
PROVIDERS: ATTEND Specialist
DX: M51.36 Other intervertebral disc degeneration, lumbar region (principal); M47.816 Spondylosis without myelopathy or radiculopathy, lumbar region; G89.29 Other chronic pain; M19.90 Unspecified osteoarthritis, unspecified site; F10.90 Alcohol use, unspecified, uncomplicated
CPT/HCPCS: 99211

== ENCOUNTER 2024-06-08 01:04 | Emergency (ER) | payer MEDICARE ==
[2024-06-08] MEDS ORDERED: KETOROLAC 15 MG/ML 1 ML VIAL ONE (05:02)
[2024-06-08] MEDS ORDERED: ACET/COD 300 MG/30 MG STARTER PACK 6 TAB BTL PO ONE (05:02)
== END 2024-06-08 04:50 | disposition home or self-care (01) ==
LOC: EC 01:04
DX: M79.601 Pain in right arm (principal)

== ENCOUNTER → 2024-09-15 | Outpatient (CLI) | payer MEDICARE ==
--- NOTE | 2024-09-15 13:38 | MR ---
EXAMINATION TYPE: MR cervical spine wo con DATE OF EXAM: 09/15/2024 11:49 AM COMPARISON: 10/17/2024. CLINICAL INDICATION: Male, 79 years old with history of M54.12, M43.22, Neck pain, headaches, LUE rad iculopathy. Hx surgery. TECHNIQUE: Multi planar, multi sequence imaging was performed utilizing: T1-weighted, T2-weighted, an d turbo inversion recovery imaging of the cervical spine. IV Contrast: (None, if empty) FINDINGS: Alignment: The cervical vertebral bodies have preserved heights. Alignment is within normal limits gi jocelyn patient positioning. Bones: Bone signal is within normal limits. No abnormal bone marrow edema on inversion recovery seque nces. Fixation hardware at the anterior aspect of C4-C5 and C6. Cord: The spinal cord is unremarkable with regards to their signal intensity and morphology. Discs: Intervertebral disc signal is maintained. C2-C3: No significant disc pathology. The spinal canal is patent. Bilateral facet and uncovertebral joint arthropathy are present with mild bilateral neural foraminal stenosis. C3-C4: No significant disc pathology. The spinal canal is patent. Bilateral facet and uncovertebral joint arthropathy are present with mild bilateral neural foraminal stenosis. C4-C5: No significant disc pathology. The spinal canal is patent. No neural foraminal stenosis. C5-C6: No significant disc pathology. The spinal canal is patent. No neural foraminal stenosis. C6-C7: No significant disc pathology. The spinal canal is patent. No neural foraminal stenosis. C7-T1: No significant disc pathology. The spinal canal is patent. No neural foraminal stenosis. Other: None. IMPRESSION: 1. No evidence for disc herniation or significant spinal canal stenosis. 2. Postsurgical changes with patent spinal canal. The neural foramen appear patent within the limitat ions of the exam. No foraminal stenosis worse on the right at C3-C4. [facility], , 09/15/2024 1:36 PM
== END | disposition home or self-care (01) ==
LOC: RADMRIMAIN 10:58
PROVIDERS: ATTEND Orthopaedic Surgery
DX: M54.12 Radiculopathy, cervical region (principal); M43.22 Fusion of spine, cervical region; M99.71 Connective tissue and disc stenosis of intervertebral foramina of cervical region; M12.88 Other specific arthropathies, not elsewhere classified, other specified site
CPT/HCPCS: 72141

== ENCOUNTER → 2024-10-26 | Outpatient (CLI) | payer MEDICARE ==
[2024-10-26 09:40] VITALS: BP 110/72; PULSE 58; RESP 16; TEMP 98
--- NOTE | 2024-10-26 13:35 | P.PAINPG ---
Objective - Vital Signs Vital signs: Intake & Output 10/25/24 10/26/24 10/26/24 18:59 06:59 18:59 Weight 72.575 kg PQRS Measure Charge Sheet Comment: An 79 yr old male with a history of severe and chronic neck and LBP secondary to radiculopathy, spondylosis with facet arthropathy without myelopathy presents today for evaluation. Pain level is currently at 6 /10 in intensity, constant, predominantly axial, localized in the mid to lower cervical spine, sharp in character w shooting towards L shoulder. Pain is provoked by heavy activity. Pain is alleviated with PT x 4 wks which ended in Sep 2024, physician guided stretches daily since Sep 2024, injections, medications, topicals, injections, ice, heat, repositioning and rest. Interventional pain procedures completed include ESIs, BL TPIs C2-T1 Patient is currently on [place], Tylenol OTC Patient denies any side effects of the medication(s), denies excessive drowsiness or sleepiness, denies suicidal ideation and reports that the current pain medication is helping to control the pain and improve activities of daily living. Patient denies any motor or sensory deficits. Patient denies any fever or night sweats, denies any change in the bowel movements or urination. Physical Examination: -Constitutional: Cooperative. Not in acute distress . - Neurologic: Cranial nerve II to XII intact. No focal neurological deficits. - Psychatric: Alert & oriented x 3. Matching mood & appropriate affect. Judgment and insight intact. - Musculoskeletal: Cervical spine: Muscle bulk/ tone/ strength in the bilateral upper extremities normal Vertebral body tenderness to palpation over C7 Spurling test positive L C6-C7 Distraction test positive Facet loading test positive Thoracic spine Muscle bulk / tone/ strength in the bilateral paraspinal muscles normal Vertebral body tender to palpation over Facet loading test positive Lumbar spine: Motor bulk/ tone/ strength lower extremities , thigh and legs : 5/5 Deep tendon reflexes : Normal Knee Jerk. Normal Ankle Jerk . Vertebral body tenderness to palpation over Lumbar Facet Loading Test positive Straight Leg Raise: positive at 30 degrees right side/ left side Gaenslen's Test positive Sacral spine : Severe tenderness over the Sacroiliac joint: right side / left side Range of motion: Flexion of the lumbar spine <60 degrees Range of motion: Extension of the lumbar spine <20 degrees Gaenslen's Test positive Erasmo's Test positive Jossy test: positive right side / left side Thigh Thrust Test Sacral Thrust Test Assessment and plan: Chronic neck pain secondary to radiculopathy, spondylosis with facet arthropathy without myelopathy Recommendation of L TFESI C6-C7 #1. Risks, benefits of procedure discussed and pt verbalized understanding. Protocol for discontinuation/ continuation of medications clemente procedure discussed. All patient questions answered I have spent less than 30 minutes on patient care today. Dr Angela was available by phone for the evaluation of this patient. The time was used to review the medical records including relevant urine studies and Prescription history (MAPs), review of the available imaging, evaluation and examination of the patient, coordination of care with the medical staff and if applicable referring physicians, as well as creation of the medical record PQRS Narrative: Smoking Status Never smoker Hx Alcohol Use (MH) Yes Home Medications: Ambulatory Orders Ezetimibe [Zetia] 10 mg PO HS 09/11/15 Propranolol HCl [Inderal LA] 80 mg PO Q48H 09/11/15 SUMAtriptan succinate [Imitrex] 100 mg PO DAILY PRN 09/11/15 buPROPion XL [Wellbutrin XL] 150 mg PO DAILY 09/11/15 buPROPion XL [Wellbutrin XL] 300 mg PO DAILY 09/11/15 Albuterol Sulfate [Albuterol Sulfate Hfa] 2 puff PO RT-Q4H PRN 12/24/22 Citalopram Hydrobromide [CeleXA] 40 mg PO HS 12/24/22 Clobetasol Propionate [Temovate 0.05% Cream] 1 applic TOPICAL BID PRN 12/24/22 Nitroglycerin Sl Tabs [Nitrostat] 0.4 mg SUBLINGUAL Q5M PRN #20 tab 12/24/22 Omeprazole [PriLOSEC] 20 mg PO BID 12/24/22 clonazePAM [KlonoPIN] 0.25 mg PO TID 12/24/22 lamoTRIgine [LaMICtal] 100 mg PO HS 12/24/22 tadalafiL 10 mg PO Q48H PRN 12/24/22 Acetaminophen [Tylenol Arthritis] 1 tab PO DIRECTED 10/26/24 Aspirin 1 tab PO DIRECTED 10/26/24 Gabapentin [Neurontin] 1 cap PO TID 10/26/24 Controlled Substance Measures - Controlled Substance Measures Is patient prescribed a controlled substance at discharge?: No
== END ==
LOC: PNWHC3 08:39
PROVIDERS: ATTEND Specialist
DX: M47.819 Spondylosis without myelopathy or radiculopathy, site unspecified (principal); G89.29 Other chronic pain; M54.2 Cervicalgia; Z88.5 Allergy status to narcotic agent; Z91.09 Other allergy status, other than to drugs and biological substances; Z88.8 Allergy status to other drugs, medicaments and biological substances
CPT/HCPCS: 99211

== ENCOUNTER → 2024-11-10 | Day surgery (SDC) | payer MEDICARE ==
[~2024-11-10] MED LIST changes: +DEXAMETHASONE SOD PHOSPHATE 10 MG/ML 1 ML VIAL ONE; +IOPAMIDOL M200 10 ML VIAL ONE; -LIDOCAINE 1% (10MG/ML) FOR IV START INTRADERMA PRN
[2024-11-10 09:46] VITALS: TEMP 97.7
--- NOTE | 2024-11-10 10:23 | P.PCN ---
Date of Procedure: 11/10/24 Procedure(s) Performed: PREOPERATIVE DIAGNOSIS: 1-cervical radiculopathy . 2-cervical degenerative disc disease. 3-cervical spondylosis with cervical facet arthropathy without myelopathy POSTOPERATIVE DIAGNOSIS: Same as preop diagnosis. PROCEDURE 1. Transforaminal epidural steroid injection under fluoroscopic guidance at left C6-7 level. (Fluoroscopy images stored on file in the radiology Department ) 2. Cervical epidurogram . ANESTHESIA: Local with 1% lidocaine 3 ml. EBL: Minimal PROCEDURE INDICATION: The patient with neck pain and radiculopathy symptoms unresponsive to conservative treatment. PROCEDURE DESCRIPTION / TECHNIQUE: The patient was seen and identified in the preoperative area. Risks, benefits, complications, and alternatives were discussed with the patient. The patient agreed to proceed with the procedure and signed the consent. IV was started, and vital signs were stable. Patient was taken to the OR and time out was completed. The patient was placed in the Lateral position ( Left side up ) on procedure table . The cervical area was prepped and draped in the usual sterile fashion. Critical pause was taken. Vital signs were closely monitored during the procedure. Using oblique fluoroscopy, the chin of the ``[place]ngel dog at Left C6-7 level was identified, and the skin and deeper tissues just below was localized with 1% lidocaine. Subsequently, a 22-gauge 3.5-inch spinal needle was advanced under a tunneled view fluoroscopic guidance just underneath the chin of the ``[place]el dog at the Left C6-7 Under lateral fluoroscopy, the needle was then advanced to the posterior border of the interforaminal space. After negative aspiration of CSF and blood and with no paresthesias, 1 mL Isovue 200 contrast dye was injected excellent epidurogram and outlining of the nerve root Subsequently, 2 mL of block solution containing 10 mg Dexamethasone and 1 mL of 0.9% normal saline PF was injected. Needle was removed . At the end of the procedure, skin was cleansed, and bandages were applied. COMPLICATIONS:none DISPOSITION / PLANS: The patient was placed in a supine position and transferred to the recovery area in a stable condition for observation. There was no evidence of lower extremity motor or sensory deficit after the procedure. Patient was discharged from the recovery room after meeting discharge criteria. Home discharge instructions were given to the patient by the staff. The patient was reexamined prior to discharge.
[2024-11-10 10:25] VITALS: RESP 14
--- NOTE | 2024-11-10 10:33 | FL ---
Fluoroscopy INDICATION: Pain FINDINGS: Fluoroscopy time: 9.1 seconds. Total dose area product (DAP) in uGy*m?, mGy*cm? (or similar): 0.08390 Images obtained: 3. There is anterior cervical fusion with disc spacers placed IMPRESSION: 1. Documentation of fluoroscopy. [facility], Workstation: [facility], 11/10/2024 10:31 AM
[2024-11-10 10:40] VITALS: BP 126/73; PULSE 56
== END ==
LOC: ORPAIN 09:03
PROVIDERS: ATTEND Specialist
DX: M47.22 Other spondylosis with radiculopathy, cervical region (principal); M50.123 Cervical disc disorder at C6-C7 level with radiculopathy; Z88.5 Allergy status to narcotic agent; Z88.8 Allergy status to other drugs, medicaments and biological substances; Z79.82 Long term (current) use of aspirin
CPT/HCPCS: 64479; J1100; Q9966; 64483

== ENCOUNTER 2024-12-29 08:21 | Day surgery (SDC) | payer MEDICARE ==
[2024-12-27 14:27] VITALS: BMI 25.0
[~2024-12-29 08:21] MED LIST changes: -DEXAMETHASONE SOD PHOSPHATE 10 MG/ML 1 ML VIAL ONE; -IOPAMIDOL M200 10 ML VIAL ONE
[2024-12-29 09:01] VITALS: TEMP 97.2
[2024-12-29] MEDS ORDERED: DEXAMETHASONE SOD PHOSPHATE 10 MG/ML 1 ML VIAL ONE (10:18)
[2024-12-29] MEDS ORDERED: IOPAMIDOL M200 10 ML VIAL ONE (10:18)
--- NOTE | 2024-12-29 10:31 | P.PCN ---
Date of Procedure: 12/29/24 Procedure(s) Performed: PREOPERATIVE DIAGNOSIS: 1-cervical radiculopathy . 2-cervical degenerative disc disease. 3-cervical spondylosis with cervical facet arthropathy without myelopathy POSTOPERATIVE DIAGNOSIS: Same as preop diagnosis. PROCEDURE 1. Transforaminal epidural steroid injection under fluoroscopic guidance at left C6-7 level and left C7-T1. (Fluoroscopy images in in the radiology Department ) 2. Cervical epidurogram . ANESTHESIA: Local with 1% lidocaine 3 ml. EBL: Minimal PROCEDURE INDICATION: The patient with neck pain and radiculopathy symptoms unresponsive to conservative treatment. PROCEDURE DESCRIPTION / TECHNIQUE: The patient was seen and identified in the preoperative area. Risks, benefits, complications, and alternatives were discussed with the patient. The patient agreed to proceed with the procedure and signed the consent, and vital signs were stable. Patient was taken to the OR and time out was completed. The patient was placed in the Lateral position ( Left side up ) on procedure table . The cervical area was prepped and draped in the usual sterile fashion. Critical pause was taken. Vital signs were closely monitored during the procedure. Using oblique fluoroscopy, the chin of the `[place] dog at Left C6-7 level was identified, and the skin and deeper tissues just below was localized with 1% lidocaine. Subsequently, a 22-gauge 3.5-inch spinal needle was advanced under a tunneled view fluoroscopic guidance just underneath the chin of the `[place] dog at the Left C6-7 Under lateral fluoroscopy, the needle was then advanced to the posterior border of the interforaminal space. After negative aspiration of CSF and blood and with no paresthesias, 1 mL Isovue 200 contrast dye was injected excellent epidurogram and outlining of the nerve root Subsequently, 2 mL of block solution containing 7.5 mg Dexamethasone and 1 mL of 0.9% normal sa line PF was injected. Needle was removed , and the exact same procedure was repeated for the left side C7-T1 . At the end of the procedure, skin was cleansed, and bandages were applied. COMPLICATIONS:none DISPOSITION / PLANS: The patient was placed in a supine position and transferred to the recovery area in a stable condition for observation. There was no evidence of lower extremity motor or sensory deficit after the procedure. Patient was discharged from the recovery room after meeting discharge criteria. Home discharge instructions were given to the patient by the staff. The patient was reexamined prior to discharge.
[2024-12-29 10:37] VITALS: BP 123/80; PULSE 60; RESP 18
--- NOTE | 2024-12-29 11:05 | FL ---
EXAMINATION TYPE: FL guided pain mgmt statistic Intraoperative/procedural fluoroscopic services were provided. CLINICAL INDICATION:Male, 79 years old with history of PAIN; , [facility] FINDINGS: 2 fluoroscopic images demonstrating cervical epidural steroid injection. Anterior cervical fusion roro dware is demonstrated. No radiographic evidence for complication. Total fluoroscopy time is 5.8 seconds. DAP: [id number] mGym2 Please see the operative/procedural note for further details. [facility], , 12/29/2024 11:03 AM
== END 2024-12-29 10:15 | disposition home or self-care (01) ==
LOC: ORPAIN 08:21
PROVIDERS: ATTEND Specialist
DX: M47.22 Other spondylosis with radiculopathy, cervical region (principal); M50.10 Cervical disc disorder with radiculopathy, unspecified cervical region; Z88.5 Allergy status to narcotic agent; Z91.09 Other allergy status, other than to drugs and biological substances
CPT/HCPCS: 64483; 64484; J1100; Q9966

== ENCOUNTER → 2025-01-04 | Outpatient (CLI) | payer MEDICARE ==
[2025-01-04 09:35] LABS: African American GFR (CKD) >90 (>60 ml/min/1.73 sqM); Blood Urea Nitrogen 15 mg/dL (9-20); Non-African American GFR(CKD) 87 (>60 ml/min/1.73 sqM)
--- NOTE | 2025-01-04 10:16 | CT ---
EXAMINATION TYPE: CT soft tissue neck w con DATE OF EXAM: 01/04/2025 COMPARISON: NONE CLINICAL INDICATION: Male, 79 years old with history of R22.1 NECK SWELLING AND MASS, RIGHT SIDED NEC K MASS TECHNIQUE: CT scan of the neck is performed with IV Contrast, patient injected with 100 mL of Isovue 300, axial images are obtained, coronal and sagittal reformatted images are reviewed. CT DLP: 349.5 mGycm. Automated Exposure Control for Dose Reduction was Utilized. FINDINGS: Airway: No gross abnormality seen. Parotid/submandibular glands: Metallic BB placed at the inferior right submandibular level of the hyo id bone image 49. Submandibular glands are symmetric and unremarkable. There is a slightly prominent draining external vein superior to this axial image 55 noted. No obvious solid or cystic mass or flui d collection is seen. No suspicious adenopathy is present. Parotid glands are symmetric and unremarka ble. Carotid/Vascular Structures: Mild narrowing at the origin of the right internal carotid artery Osseous Structures: Anterior fusion plate with metallic disc material C4-C6 levels . Other: None. IMPRESSION: No suspicious mass or adenopathy with particular attention to the right aspect of the ne ck at the level of the hyoid bone at the area of clinical concern. [facility], , 01/04/2025 10:13 AM
== END | disposition home or self-care (01) ==
LOC: RADCTMAIN 08:47
PROVIDERS: ATTEND Otolaryngology
DX: R22.1 Localized swelling, mass and lump, neck (principal)
CPT/HCPCS: 82565; 84520; 70491; 36415; Q9967

== ENCOUNTER → 2025-01-15 | Outpatient (CLI) | payer MEDICARE ==
[2025-01-15 10:07] VITALS: BP 98/53; PULSE 63; RESP 16; TEMP 98.2
--- NOTE | 2025-01-15 14:44 | P.PAINPG ---
PQRS Measure Charge Sheet Comment: An 79 yr old male with a history of severe and chronic neck and LBP secondary to radiculopathy, spondylosis with facet arthropathy without myelopathy presents today for evaluation s/p L TFESI C6-C7/ C7-T1 #2. Pt states he experienced 75 % pain relief x 2 wks s/p procedure. Pain level is currently at 7 /10 in intensity, intermittent, predominantly axial, localized in the mid to lower cervical spine, sharp in character w shooting towards L shoulder. Pain is provoked by heavy activity. Pain is alleviated with PT x 4 wks which ended in Sep 2024, physician guided stretches daily since Sep 2024, injections, medications, topicals, injections, ice, heat, repositioning and rest. Interventional pain procedures completed include ESIs, BL TPIs C2-T1, L TFESI C6-C7 x1 (Oct 2024), L TFESI C6-C7/ C7-T1 x1 (01/16) Patient is currently on [place], Tylenol OTC Patient denies any side effects of the medication(s), denies excessive drowsiness or sleepiness, denies suicidal ideation and reports that the current pain medication is helping to control the pain and improve activities of daily living. Patient denies any motor or sensory deficits. Patient denies any fever or night sweats, denies any change in the bowel movements or urination. Physical Examination: -Constitutional: Cooperative. Not in acute distress . - Neurologic: Cranial nerve II to XII intact. No focal neurological deficits. - Psychatric: Alert & oriented x 3. Matching mood & appropriate affect. Judgment and insight intact. - Musculoskeletal: Cervical spine: Muscle bulk/ tone/ strength in the bilateral upper extremities normal Vertebral body tenderness to palpation over C7 Spurling test positive L C6-C7/ C7-T1 Distraction test positive Facet loading test positive Thoracic spine Muscle bulk / tone/ strength in the bilateral paraspinal muscles normal Vertebral body tender to palpation over Facet loading test positive Lumbar spine: Motor bulk/ tone/ strength lower extremities , thigh and legs : 5/5 Deep tendon reflexes : Normal Knee Jerk. Normal Ankle Jerk . Vertebral body tenderness to palpation over Lumbar Facet Loading Test positive Straight Leg Raise: positive at 30 degrees right side/ left side Gaenslen's Test positive Sacral spine : Severe tenderness over the Sacroiliac joint: right side / left side Range of motion: Flexion of the lumbar spine <60 degrees Range of motion: Extension of the lumbar spine <20 degrees Gaenslen's Test positive Erasmo's Test positive Jossy test: positive right side / left side Thigh Thrust Test Sacral Thrust Test Assessment and plan: Chronic neck pain secondary to radiculopathy, spondylosis with facet arthropathy without myelopathy Will manage residual pain and may RTC on an as needed basis. Ample supply of [place] 7.5/325mg #60 w 1 RF. Use, side effects, adverse reactions, safe storage discussed. Opiate/ narcotic agreement signed 11/30/24. All patient questions answered I have spent less than 30 minutes on patient care today. Dr Angela was available by phone for the evaluation of this patient. The time was used to review the medical records including relevant urine studies and Prescription history (MAPs), review of the available imaging, evaluation and examination of the patient, coordination of care with the medical staff and if applicable referring physicians, as well as creation of the medical record PQRS Narrative: Smoking Status Never smoker Hx Alcohol Use (MH) No Home Medications: Ambulatory Orders Ezetimibe [Zetia] 10 mg PO HS 09/11/15 Propranolol HCl [Inderal LA] 80 mg PO Q48H 09/11/15 SUMAtriptan succinate [Imitrex] 100 mg PO DIRECTED PRN 09/11/15 buPROPion XL [Wellbutrin XL] 150 mg PO TID 09/11/15 Albuterol Sulfate [Albuterol Sulfate Hfa] 2 puff PO RT-Q4H PRN 12/24/22 Citalopram Hydrobromide [CeleXA] 40 mg PO HS 12/24/22 Clobetasol Propionate [Temovate 0.05% Cream] 1 applic TOPICAL BID PRN 12/24/22 Nitroglycerin Sl Tabs [Nitrostat] 0.4 mg SUBLINGUAL Q5M PRN #20 tab 12/24/22 Omeprazole [PriLOSEC] 20 mg PO BID 12/24/22 clonazePAM [KlonoPIN] 0.25 mg PO TID 12/24/22 lamoTRIgine [LaMICtal] 100 mg PO DAILY 12/24/22 tadalafiL 10 mg PO Q48H PRN 12/24/22 Acetaminophen [Tylenol Arthritis] 1 tab PO DIRECTED PRN 10/26/24 Aspirin 1 tab PO DIRECTED PRN 10/26/24 Gabapentin [Neurontin] 400 mg PO TID 10/26/24 HYDROcodone/APAP 7.5-325MG [[place] 7.5-325] 1 tab PO BID PRN 7 Days #14 tab 12/25/24 Controlled Substance Measures - Controlled Substance Measures Is patient prescribed a controlled substance at discharge?: No
== END ==
LOC: PNWHC3 09:23
PROVIDERS: ATTEND Specialist
DX: M47.22 Other spondylosis with radiculopathy, cervical region (principal); G89.29 Other chronic pain; Z91.048 Other nonmedicinal substance allergy status; Z91.040 Latex allergy status; Z91.030 Bee allergy status
CPT/HCPCS: 99212

== ENCOUNTER 2025-02-06 04:22 | Emergency (ER) | payer MEDICARE ==
[2025-02-06 04:26] VITALS: RESP 18
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
[2025-02-06] MEDS: ACETAMINOPHEN TAB 500 MG TAB PO STA (05:30)
[2025-02-06] MEDS: IBUPROFEN 800 MG TAB PO STA (05:33)
[2025-02-06] MEDS: dexAMETHasone 2 MG TAB PO STA (05:34)
[2025-02-06] MEDS: HYDROmorphone 1 MG/ML 1 ML SYRINGE IM STA (05:37)
[2025-02-06 07:14] VITALS: BP 122/72; PULSE 59; TEMP 97.7
== END 2025-02-06 07:14 | disposition home or self-care (01) ==
LOC: EC 04:22
DX: M54.12 Radiculopathy, cervical region (principal); Z91.040 Latex allergy status; Z88.8 Allergy status to other drugs, medicaments and biological substances
CPT/HCPCS: 99284; 96372; J1171; J8540